=== PATIENT | male | born 1950 | race Caucasian/White ===

== ENCOUNTER 2018-06-16 13:01 | Inpatient (IN) | payer OTHER ==
[~2018-06-16] VITALS: Ht 165.1 cm; Wt 99.8 kg
--- NOTE | 2018-06-16 15:30 | NUR ---
PATIENT ARRIVED TO UNIT AT 1530. ALERT AND ORIENTED X4. AD KAYLEIGH IN ROOM. IV PLACED IN LEFT FOREARM. PATENT AND SALINE LOCKED AT THIS TIME. NPO FOR RENAL US. VSS ON ROOM AIR. PATIENT HAS BEEN ORIENTED TO ROOM. CALL LIGHT IS WITHIN REACH. NURSING WILL CONTINUE TO MONITOR.
[2018-06-16] MEDS ORDERED: PRAVACHOL20 MG PO (15:41)
[2018-06-16] MEDS ORDERED: JANUVIA25 MG PO (15:42)
[2018-06-16] MEDS ORDERED: LISINOPRIL5 MG PO (15:42)
[2018-06-16] MEDS ORDERED: LASIX 40 MG TAB40 M2 PO (15:43)
[2018-06-16] MEDS ORDERED: MULTIVITAMINS1 EAC7 PO (15:43)
[2018-06-16] MEDS ORDERED: ZANTAC 150MG T150 MG PO (15:44)
[2018-06-16] MEDS ORDERED: B-12500 MCG PO (15:44)
[2018-06-16] MEDS ORDERED: LANTUS100 UNIT/M SUBQ (15:45)
[2018-06-16 17:17] LABS: URINE BILIRUBIN NEGATIVE (Negative); URINE BLOOD NEGATIVE (Negative); URINE CLARITY CLEAR; URINE COLOR YELLOW; URINE GLUCOSE-RANDOM NEGATIVE (Negative); URINE KETONES NEGATIVE (Negative); URINE LEUKOCYTES-REFLEX TRACE (Negative); URINE NITRITE-REFLEX NEGATIVE (Negative); URINE PROTEIN NEGATIVE (Negative); URINE SPECIFIC GRAVITY 1.025 (1.005-1.030); URINE UROBILINOGEN 0.2 E.U./dl (0.2-1.0)
[2018-06-16 17:25] LABS: SQUAMOUS 4-10 Moderate /LPF (0-3); URINE WBC-REFLEX 6-15 Few /HPF (0-5)
[2018-06-16 17:26] LABS: BACTERIA-REFLEX None Seen /HPF (None Seen); CASTS None Seen /LPF (None Seen); CRYSTALS None Seen /LPF (None Seen); URINE RBC None Seen /HPF (0-2)
--- NOTE | 2018-06-16 18:43 | NUR ---
ALERT AND ORIENTED X4. UP AD KAYLEIGH IN ROOM. IV PATENT AND SALINE LOCKED AT THIS TIME. DENIES PAIN AND NAUSEA. NPO FOR RENAL US. BLADDER SCAN COMPLETED AND IS NOT RETAINING. VSS ON ROOM AIR. HOURLY ROUNDS HAVE BEEN MAINTAINED SINCE ARRIVING TO UNIT. CALL LIGHT IS WITHIN REACH. NURSING WILL CONTINUE TO MONITOR.
[2018-06-16 20:00] VITALS: BP 152/82
--- NOTE | 2018-06-17 04:00 | NUR ---
ASSUMED CARE OF PT AT START OF SHIFT, PT HAVE NO COMPLAINTS THROUGHOUT HOURLY ROUNDS, RESTED WELL, BLOOD GLUCOSE 138 PT ATE HS SNACK AND REST WELL. NO CHANGES NOTED AT THIS TIME.
[2018-06-17 05:03] LABS: CALCIUM 8.5 mg/dL (8.5-10.1); CREATININE 5.6 mg/dL (0.6-1.3); POTASSIUM 4.1 mmol/L (3.5-5.1)
[2018-06-17 07:50] VITALS: BP 145/80
[2018-06-17 16:00] VITALS: BP 150/76
--- NOTE | 2018-06-17 17:34 | NUR ---
ASSUMED CARE OF PATIENT AFTER REPORT AT APPROX 0730. ALERT AND ORIENTED X4. ASSESSMENT COMPLETED AND CHARTED. VSS ON ROOM AIR. NO COMPLAINTS OF PAIN, NAUSEA, OR SOA. FLUIDS INFUSED ORDERED. PATIENT RESTED IN BED AND IN CHAIR THIS SHIFT. INSTRUCTED TO USE CALL LIGHT FOR NEEDS AND EDUCATED ON FALL PREVENTIONS, PATIENT COMMUNICATES UNDERSTANDING. HOURLY ROUNDS MAINTAIEND, CALL LIGHT IN REACH, NURSING WILL CONTINUE TO MONITOR.
[2018-06-17 20:20] VITALS: BP 138/71
[2018-06-18 04:27] LABS: ABSOLUTE BASOPHILS 0.1 thou/uL (0.0-0.2); ABSOLUTE EOSINOPHILS 0.4 thou/uL (0.0-0.7); ABSOLUTE LYMPHOCYTES 1.3 thou/uL (0.8-5.3); ABSOLUTE MONOCYTES 0.6 thou/uL (0.0-1.2); ABSOLUTE NEUTROPHILS 2.4 thou/uL (1.6-8.1); BASOPHILS 2.2 %; EOSINOPHILS 7.6 %; HEMATOCRIT 36.9 % (42.0-52.0); HEMOGLOBIN 12.3 gm/dL (14.0-18.0); LYMPHOCYTES 27.3 %; MCH 30.7 pg (26.0-34.0); MCHC 33.3 g/dL (28.0-37.0); MCV 92.2 fL (80.0-100.0); MONOCYTES 13.1 %; MPV 8.6 fl. (7.2-11.1); NUCLEATED RBCS 0 /100WBC; PLATELET COUNT* 257 thou/uL (150-400); POLYS 49.8 %; RDW-CV 13.3 % (10.5-14.5); WBC 4.8 thou/uL (4.0-11.0)
[2018-06-18 05:06] LABS: CALCIUM 8.1 mg/dL (8.5-10.1); CREATININE 4.7 mg/dL (0.6-1.3); POTASSIUM 3.9 mmol/L (3.5-5.1)
--- NOTE | 2018-06-18 07:13 | NUR ---
PATIENT HAS SLEPT WELL THROUGHOUT THE NIGHT. VSS ON RA. NO C/O PAIN. PATIENT IS UP AD-KAYLEIGH AND STEADY ON FEET. IV IN LEFT FOREARM-NS @ 80ML/HR. MEDICATIONS GIVEN ORDERED AND CHARTED. PATIENT INSTRUCTED TO USE CALL LIGHT WHEN NEEDING ASSISTANCE. HOURLY ROUNDS MADE. WILL CONTINUE WITH PLAN OF CARE AND NURSING TO MONITOR.
[2018-06-18 08:00] VITALS: BP 159/86
--- NOTE | 2018-06-18 08:46 | CON ---
[address] [address] CONSULTATION Name: ALVERTO HAYES Room: [address] IN [facility]#: [id number] Admission: 06/16/18 Attend Phys: Purnima Valdez Discharge: Date of : 48 Report #: [id number] THIS REPORT FOR: //name// CC: Robert Donald DATE OF SERVICE: 06/17/2018 NEPHROLOGY CONSULTATION CONSULTING PHYSICIAN: Dr. Donald. REASON FOR NEPHROLOGY CONSULTATION: Acute kidney injury on chronic kidney disease stage 4. REASON FOR ADMISSION: Abnormal labs, admitted from electrical lineman's office. HISTORY OF PRESENT ILLNESS: This is a 67-year-old male who was directly admitted from Dr. Pierce's office in [place] because of worsening kidney function. The patient has a past medical history of diabetes type 2, which is now controlled and hypertension, who normally has a baseline creatinine of 2.8 to3, but when he had his labs checked last week, his creatinine was found to be 5.[address] Pierce checked him in his office yesterday, it was 5.7 and he was admitted for further workup for this. Two to three weeks ago, the patient took ibuprofen 800 mg for 3 days due to an acute gout flare and this was his first ever episode of gout. About 2-3 weeks ago, he also started creatinine supplements twice a day. He has no rash. No history of any kidney stones. No urinary problems. No shortness of breath, no edema. He is not taking any NSAIDs now. He does take lisinopril and Lasix at home. He says that he eats and drinks well for the most part. Currently, he is not having any acute complaints. His U/A was checked, which did not show any evidence of blood or protein in it. He was started on IV fluids yesterday. His creatinine has come down to 5.6. ALLERGIES: No known drug allergies. REVIEW OF SYSTEMS: As mentioned above. PAST MEDICAL HISTORY: Includes: 1. Chronic kidney disease stage 4 due to diabetes and hypertension. 2. Diabetes type 2. 3. Hypertension. 4. Recently diagnosed gout. 5. Hypercholesterolemia. PAST SURGICAL HISTORY: Includes eye muscle surgery [address] [place] [address] CONSULTATION Name: ALVERTO HAYES Room: [address]#: [id number] Admission: 06/16/18 Attend Phys: Purnima Valdez Discharge: Date of : 48 Report #: [id number] HOME MEDICATIONS: Include pravastatin, sitagliptin, lisinopril 5 mg a day, furosemide 40 mg a day, multivitamin, cyanocobalamin, and insulin glargine. SOCIAL HISTORY: He does not smoke at the moment, but his last cigarette was a couple of weeks ago. He lives at home by himself. He does not use recreational drugs and does not drink very frequently, has about 1 beer every once in a while. FAMILY HISTORY: No family history of any kidney disease. PHYSICAL EXAMINATION: VITAL SIGNS: His blood pressure is 145/80, pulse rate is 62, temperature 36.9, respiratory rate is 18 and his oxygenation is normal. He is on no oxygen. GENERAL: He is awake, alert and oriented x 3. HEAD, EYES, EARS, NOSE AND THROAT: Mucous membranes are moist. NECK: There is no JVD. CHEST: Clear to auscultation bilaterally. No crackles or wheezing. CARDIOVASCULAR: S1 and S2 normal. No murmurs heard. ABDOMEN: Soft, nondistended and nontender. Bowel sounds are present. EXTREMITIES: There is no lower extremity edema, symmetrical lower extremities. NEUROLOGICAL FUNCTION: Gross neurological function is intact. PSYCHIATRIC: Mood and affect seems to be normal. LABORATORY DATA: Urinalysis shows no protein or blood in the urine. Potassium is 4.1, BUN 51, creatinine is 5.6, CO2 is 28, sodium is 141 and calcium 8.5. Other labs are reviewed. IMAGING: Renal ultrasound showed no abnormalities. ASSESSMENT: 1. Acute kidney injury on chronic kidney disease stage 4. Differential diagnoses include ischemic acute tubular necrosis versus acute interstitial nephritis due to creatinine supplements. The patient was also on Lasix and lisinopril and also took some ibuprofen at home. Renal ultrasound did not show any acute abnormalities and there is no protein or blood in the urine. 2. Hypertension. Blood pressure is running slightly high. 3. Diabetes type 2. Blood glucose seems to be controlled. 4. Dyslipidemia. 5. Recent episode of gout. PLAN: 1. Continue IV fluids for now. The patient was not retaining any urine. Renal ultrasound was normal and U/A was unremarkable. 2. Kidney function so far is getting better. Avoid nephrotoxic agents. He is [address] [address] CONSULTATION Name: ALVERTO HAYES Room: [address] IN [facility].#: [id number] Admission: 06/16/18 Attend Phys: Purnmia Valdez Discharge: Date of : 48 Report #: [id number] also on Lasix and lisinopril; and once this acute episode is better, he will have to be started on allopurinol, but he will need colchicine for the first few days and we will avoid that for now because of his kidney function. 3. If his creatinine does not significantly get better, he might need biopsy and he might need possibly steroids or possible AIN due to creatinine supplements. 4. His blood pressure is currently slightly high. We will add nifedipine 30 mg XL once a day to help with his blood pressure. Thank you for this consultation. I will continue to follow along with you. Discussed the plan with the patient as well as the patient's nurse. <ELECTRONICALLY SIGNED> By: Lupe Parikh MD 06/18/18 [id number] [id number] Parikh MD /nt
[2018-06-18 16:08] VITALS: BP 146/84
--- NOTE | 2018-06-18 16:38 | NUR ---
PT VSS THIS SHIFT. NEPHROLOGY CAME AND EXPLAINED TO THE PT HE NEEDED TO WAIT TO DC DUE TO HIS INCREASED CREATNINE. PT TOLERATING RENAL DIET AND STATED THAT HE WAS TOLD TO HOLD HIS PO DIABETES MEDICATIONS, WILL DISCUSS WITH DR ALVARADO WHEN HE IS ON THE UNIT. PT TOLERATING BEING UP AD KAYLEIGH AT THIS TIME AND IV FLUIDS THIS SHIFT. PT DENIES PAIN. WILL CONTINUE TO MONITOR AND ASSESS.
--- NOTE | 2018-06-18 17:25 | NUR ---
SPOKE WITH DR ALVARADO REGARDING PT BLOOD GLUCOSE PO MEDICATIONS AND HE STATED THAT THE PT CAN RESUME THE PO MEDICATIONS HE IS UNAWARE OF WHO OR WHY HE WAS TOLD TO WAIT TO TAKE THIS MEDICATION. WILL DISCUSS WITH THE PT AT THIS TIME. WILL CONTINUE TO MONITOR AND ASSESS.
[2018-06-18 20:20] VITALS: BP 128/69
--- NOTE | 2018-06-19 07:33 | NUR ---
PATIENT HAS SLEPT WELL THROUGHOUT THE NIGHT. NO C/O PAIN. VSS ON RA. PATIENT IS UP AD-KAYLEIGH AND STEADY ON FEET. PATIENT INSTRUCTED TO USE CALL LIGHT WHEN NEEDING ASSISTANCE. HOURLY ROUNDS MADE. WILL CONTINUE WITH PLAN OF CARE AND NURSING TO MONITOR.
[2018-06-19 07:59] VITALS: BP 136/61
[2018-06-19] MEDS ORDERED: PROCARDIA XL30 MG PO (11:04)
[2018-06-19 12:17] LABS: CALCIUM 8.3 mg/dL (8.5-10.1)
[2018-06-19 12:20] LABS: CREATININE 3.7 mg/dL (0.6-1.3)
[2018-06-19 12:39] VITALS: BP 136/61
--- NOTE | 2018-06-19 18:11 | NUR ---
PATIENT LEFT UNIT AT 1440. ALERT AND ORIENTED X4. UP AD KAYLEIGH IN ROOM. IV DC'D. DENIES PAIN AND NAUSEA. TOLERATING DIET. ALL PERSONAL ITEMS LEFT WITH PATIENT. DISCHARGE INSTRUCTIONS, PRESCRIPTIONS, AND NEW MEDICATION INFORMATION SENT WITH PATIENT. VSS ON ROOM AIR. HOURLY ROUNDS HAVE BEEN MAINTAINED THROUGHOUT SHIFT. DROVE SELF VIA CAR.
[2018-06-19 18:13] VITALS: BP 136/61
== END 2018-06-19 14:40 | disposition home or self-care (01) | DRG 917 ==
LOC: M.ICU 13:01 → M.3W 13:11 → M.ORTHSURG 15:02
PROVIDERS: Internal Medicine; ADMIT Internal Medicine
DX: T50.991A Poisoning by other drugs, medicaments and biological substances, accidental (unintentional), initial encounter (principal); N17.0 Acute kidney failure with tubular necrosis; N18.4 Chronic kidney disease, stage 4 (severe); N10 Acute pyelonephritis; I12.9 Hypertensive chronic kidney disease with stage 1 through stage 4 chronic kidney disease, or unspecified chronic kidney disease; E11.22 Type 2 diabetes mellitus with diabetic chronic kidney disease; E78.00 Pure hypercholesterolemia, unspecified; E78.5 Hyperlipidemia, unspecified; M10.9 Gout, unspecified; F17.210 Nicotine dependence, cigarettes, uncomplicated; Z79.899 Other long term (current) drug therapy